=== PATIENT | female | born 2000 ===

== ENCOUNTER 2020-06-13 01:34 | Emergency (ER) | payer SELFPAY ==
[2020-06-13] MEDS ORDERED: Boostrix 0.5 ML (Tdap) VIAL ONE (01:56)
[2020-06-13] MEDS ORDERED: Ondansetron PF 4 MG/2 ML Vial ONE (02:08)
--- NOTE | 2020-06-13 07:33 | CT ---
PRELIMINARY REPORT/DIRECT RADIOLOGY/EMERGENCY AFTER HOURS PROCEDURE: EXAM: CT Head and Cervical Spine Without IV contrast. CLINICAL HISTORY: F20, AMS ETOH FELL HIT BACK OF HEAD LAC TO BACK RIGHT OF HEAD TECHNIQUE: Axial computed tomography images were acquired of the head and the cervical spine without intravenous contrast. Sagittal and coronal reformatted images were obtained of the cervical spine. COMPARISON: None provided. FINDINGS: BRAIN: No acute intraparenchymal hemorrhage. No mass lesion. No CT evidence for acute territorial inf arct. No midline shift or extra-axial collection. VENTRICLES No hydrocephalus. ORBITS The orbits are unremarkable. SINUSES AND MASTOIDS The paranasal sinuses and mastoid air cells are clear. SOFT TISSUES Right parietal scalp laceration and hematoma. No radiopaque foreign body is seen. BONES No acute osseous pathology evident. No acute fracture is evident on images of the head or cervi mohit spine. DISKS/DEGENERATIVE CHANGES No significant disc or facet degeneration. Posterior cervical spine vertebral body alignment is within normal limits. IMPRESSION: 1. No acute intracranial findings. No acute intracranial injury evident. 2. No cervical spine fracture evident. 3. Right parietal scalp laceration and hematoma. No underlying calvarial fracture ELECTRONICALLY SIGNED BY: Reyes Oliveira DO Jun 13, 2020 3:11:05 AM DRAPERY ESTIMATOR FINAL REPORT BRAIN CT WITHOUT CONTRAST: EMERGENCY AFTER HOURS EXAM TIME: 2:55 AM. DATE: 06/13/2020. This is a final report Right parietal scalp injury. No mass or bleed or other acute process intracranially. This report is in agreement with the preliminary report. Transcribed Date/Time: 06/13/2020 7:57 AM
--- NOTE | 2020-06-13 07:35 | CT ---
PRELIMINARY REPORT/DIRECT RADIOLOGY/EMERGENCY AFTER HOURS PROCEDURE: EXAM: CT Head and Cervical Spine Without IV contrast. CLINICAL HISTORY: F20, AMS ETOH FELL HIT BACK OF HEAD LAC TO BACK RIGHT OF HEAD TECHNIQUE: Axial computed tomography images were acquired of the head and the cervical spine without intravenous contrast. Sagittal and coronal reformatted images were obtained of the cervical spine. COMPARISON: None provided. FINDINGS: BRAIN: No acute intraparenchymal hemorrhage. No mass lesion. No CT evidence for acute territorial inf arct. No midline shift or extra-axial collection. VENTRICLES No hydrocephalus. ORBITS The orbits are unremarkable. SINUSES AND MASTOIDS The paranasal sinuses and mastoid air cells are clear. SOFT TISSUES Right parietal scalp laceration and hematoma. No radiopaque foreign body is seen. BONES No acute osseous pathology evident. No acute fracture is evident on images of the head or cervi mohit spine. DISKS/DEGENERATIVE CHANGES No significant disc or facet degeneration. Posterior cervical spine vertebral body alignment is within normal limits. IMPRESSION: 1. No acute intracranial findings. No acute intracranial injury evident. 2. No cervical spine fracture evident. 3. Right parietal scalp laceration and hematoma. No underlying calvarial fracture ELECTRONICALLY SIGNED BY: Reyes Oliveira DO Jun 13, 2020 3:11:05 AM FUSION ANALYST FINAL REPORT CT SCAN CERVICAL SPINE WITHOUT CONTRAST: EMERGENCY AFTER HOURS EXAM TIME: 2:53 AM. DATE: 06/13/2020. This is the final report No acute fracture or dislocation. This report is in agreement with the preliminary report. Transcribed Date/Time: 06/13/2020 7:59 AM
== END 2020-06-13 04:25 | disposition home or self-care (01) ==
LOC: ERS 01:34
DX: S01.01XA Laceration without foreign body of scalp, initial encounter (principal); F10.129 Alcohol abuse with intoxication, unspecified; W01.198A Fall on same level from slipping, tripping and stumbling with subsequent striking against other object, initial encounter
CPT/HCPCS: 12002; 70450; 72125; 90471; 90715; 94760; 96374; J2405